=== PATIENT | female | born 1965 | race Two or more races ===

== ENCOUNTER → 2018-04-25 | Day surgery (SDC) | payer OTHER ==
[2018-04-25] VITALS (12 sets, daily range): BP systolic 96–145; BP diastolic 48–81
[~2018-04-25] VITALS: Ht 153.7 cm; Wt 82.6 kg
[~2018-04-25] MED LIST: Bupivacaine 0.5% Inj 30 ml vial INJ ONE; Bupivacaine w/Epi 0.25% 30ml Vial INJ ONE; D5 1/2NS 1,000 ML IV SCH; DiphenhydrAMINE 50mg/ml Inj IVP PRN; Duramorph PF 10mg/10ml amp EPIDUR ONE; HYDROmorphone 1mg/ml Carpuject SUBQ PRN; Kenalog-40 1ml Vial ONE; Ketorolac 30mg Inj IV PRN; Ketorolac 30mg Inj ONE; LISINOPRIL40 MG ORAL; LR 1000ml 1,000 ML IVLG SCH; LR 1000ml ONE; Lidocaine 1% 10mg/ml/Epi 0.005mg/ml 30ml vial INJ ONE; Lidocaine 1% MPF 10mg/ml 5ml ONE; Meperidine 50mg/ml Inj(FOR RIGORS ONLY) IV PRN; Metoclopramide 10mg/2ml Inj IVP SCH; Metoclopramide 10mg/2ml Inj ONE; Midazolam 2mg/2ml Inj ONE; Morphine Sulfate PF 10 ML ONE; NS Irrig 1000ml ONE; NS Irrig 4000ml IRRIG ONE; Norco 5mg/325mg tab ORAL PRN; Propofol 200mg/20ml IV ONE; Tylenol #3 tab (300mg/30mg) ORAL PRN; ceFAZolin 1gm IVPB IVPB ONE; celeBREX 200mg Cap **SURGERY PATIENTS ONLY ORAL ONE; fentaNYL 100 mcg/2 mL IV ONE; oxyCONTIN 20mg tab ORAL ONE
--- NOTE | 2018-04-25 08:00 | Pre-Procedure Note/Attestation ---
Pre-Procedure Note/Attestation Complete Prior to Procedure Planned Procedure: right Procedure Narrative: knee arthroscopy, possible synovectomy, possible menisectomy Indications for Procedure Pre-Operative Diagnosis: right knee internal derangement Attestation I attest that I discussed the nature of the procedure; its benefits; risks and complications; and alternatives (and the risks and benefits of such alternatives ), prior to the procedure, with the patient (or the patient's legal patient care representative). I attest that, if there was a reasonable possibility of needing a blood transfusion, the patient (or the patient's legal patient care representative) was given the [facility] standardized written summary, pursuant to the Mitch Stoney Blood Safety Act ([place] Health and Safety Code # 1645, as amended). I attest that I re-evaluated the patient just prior to the surgery and that there has been no change in the patient's H&P, except as documented below: Kris Almanza MD Apr 25, 2018 08:00
--- NOTE | 2018-04-25 08:00 | Operative Note - PDOC ---
Operative Note Operative Note Pre-op Diagnosis: right knee internal derangement Procedure: see op report Post-op Diagnosis: same as pre-op plus Operative Findings: consistent w/pre-op dx studies Anesthesia: MAC Specimen: none Complications: none Condition: stable Estimated Blood Loss: none Implant(s) used?: No Kris Almanza MD Apr 25, 2018 08:00
--- NOTE | 2018-04-25 12:27 | Anethesia Preoperative Eval ---
Anesthesia Pre-op PMH/ROS General Date of Evaluation: Apr 25, 2018 Time of Evaluation: 11:57 Anesthesiologist: Chelsie ASA Score: ASA 2 Mallampati Score Class I : Soft palate, uvula, fauces, pillars visible Class II: Soft palate, uvula, fauces visible Class III: Soft palate, base of uvula visible Class IV: Only hard plate visible Mallampati Classification: Class II Surgeon: Archie Diagnosis: R knee pain Surgical Procedure: R knee scope Anesthesia History: none Family History: no anesthesia problems Allergies: Coded Allergies: No Known Allergies (Unverified , 04/24/18) Medications: see eMAR Patient NPO?: Yes Past Medical History Cardiovascular: Reports: HTN - stable Pulmonary: Denies: asthma, COPD, TUCKER, other Gastrointestinal/Genitourinary: Reports: GERD; Denies: CRI, ESRD, other Neurologic/Psychiatric: Denies: dementia, CVA, depression/anxiety, TIA, other Endocrine: Denies: DM, hypothyroidism, steroids, other HEENT: Denies: cataract (L), cataract (R), glaucoma, MENTASTA (L), MENTASTA (R), other Hematology/Immune: Denies: anemia, DVT, bleeding disorder, other Musculoskeletal/Integumentary: Denies: OA, RA, DJD, DDD, edema, other Other: obesity PMH Narrative: as above PSxH Narrative: None Anesthesia Pre-op Phys. Exam Physician Exam Last Vital Signs Date Time Temp Pulse Resp B/P (MAP) Pulse Ox O2 Delivery O2 Flow Rate FiO2 04/25/18 10:03 97.7 75 20 137/78 100 Room Air Constitutional: NAD Neurologic: CN 2-12 intact Cardiovascular: RRR, no M/R/G Respiratory: CTA Gastrointestinal: other - obesity Airway Exam Mallampati Score: Class II MO: full Neck: short ROM: limited Teeth: missing Dentures: upper, lower Anesthesia Pre-op A/P Labs see chart Urine Test Test 04/25/18 09:10 Urine HCG, Qualitative Negative (NEGATIVE) Studies Pre-op Studies: EKG - NSR Risk Assessment & Plan Assessment: ASA 2 Plan: GA with LMA Status Change Before Surgery: No Pre-Antibiotics Drug: Ancef 1 gr. Given Within 1 Hr of Incision: Yes Time Given: 12:22 Jed Holguin MD Apr 25, 2018 12:27
--- NOTE | 2018-04-25 13:43 | Immediate Post-Op Evaluation ---
Immediate Post-Op Evalulation Immediate Post-Op Evalulation Procedure: R knee arthroscopy meniscectomy Date of Evaluation: Apr 25, 2018 Time of Evaluation: 13:42 IV Fluids: 800 Blood Products: none Estimated Blood Loss: none Urinary Output: none Blood Pressure Systolic: 98 Blood Pressure Diastolic: 64 Pulse Rate: 57 Respiratory Rate: 20 O2 Sat by Pulse Oximetry: 99 Temperature (Fahrenheit): 98.3 Pain Score (1-10): 1 Nausea: No Vomiting: No Complications none Patient Status: reacts, patent, none Hydration Status: adequate Jed Holguin MD Apr 25, 2018 13:43
--- NOTE | 2018-04-25 16:21 | 48 Hour Post Anesthesia Eval ---
Post Anesthesia Evaluation Procedure: R knee arthroscopy meniscectomy Date of Evaluation: Apr 25, 2018 Time of Evaluation: 16:20 Blood Pressure Systolic: 132 0: 58 Pulse Rate: 72 Respiratory Rate: 20 Temperature (Fahrenheit): 97.6 O2 Sat by Pulse Oximetry: 98 Airway: patent Nausea: No Vomiting: No Pain Intensity: 1 Hydration Status: adequate Cardiopulmonary Status: stable Mental Status/LOC: patient returned to baseline Follow-up Care/Observations: n/a Post-Anesthesia Complications: none Follow-up care needed: ready to discharge Jed Holguin MD Apr 25, 2018 16:21
--- NOTE | 2018-04-25 20:45 | Operative Note - Dictated ---
POSTOPERATIVE DIAGNOSES: 1. Right knee medial and lateral meniscus tear. 2. Right knee chondral damage. 3. Right knee synovitis/hypertrophic fat pad syndrome. POSTOPERATIVE DIAGNOSES: 1. Right knee medial and lateral meniscus tear. 2. Right knee chondral damage. 3. Right knee synovitis/hypertrophic fat pad syndrome. PROCEDURE: 1. Right knee arthroscopic and partial medial and lateral meniscectomy. 2. Synovectomy, lateral patellofemoral compartment. 3. Gentle chondroplasty, patellofemoral medial compartment. SURGEON: Kris Almanza M.D. ANESTHESIA: General. INDICATION FOR PROCEDURE: The patient is a pleasant 52-year-old female, who has had significant right knee pain. She had MRI, which showed a medial and lateral meniscus tear. She has failed conservative treatment, elected to undergo right knee arthroscopic, partial medial and lateral meniscectomy, synovectomy, possible chondroplasty. She understood that arthroscopic surgery would not address any significant underlying arthritis. Additional risks including continued pain, need for future surgery, risk of medical complications, DVT, and PE, postoperative risks were all discussed. DESCRIPTION OF PROCEDURE: After informed consent was obtained, the patient was brought to the operating room. The patient was placed under general anesthesia. . The patient then had the right leg prepped and draped in a sterile manner. Time-out was performed. Ancef was administered. Inferolateral stab incision was then made. Trocar was introduced into the knee joint. There is hypertrophic fat pad synovial tissue making visualization trocar somewhat difficult. Medial compartment was entered. There was hypertrophic synovial tissue and fat pad. Medial working portal was established. At this point, a complete synovectomy and excision of fat pad was performed to better visualize the medial compartment, intercondylar notch and lateral compartment. There was some grade 2 chondral damage in the distal medial femoral condyle. Medial compartment was entered. There was some grade 2 chondral damage to tibial plateau. There was a small tear in posterior horn medial meniscus. Partial meniscectomy was performed. Once that was done, the intercondylar notch was entered. The ACL was probed and noted to be intact. Lateral compartment was entered. There was a tear of the anterior horn of middle body of the lateral meniscus extending slightly posteriorly. Partial lateral meniscectomy using a shaver was performed. Once that was done, the camera was repositioned in the patellofemoral compartment. Complete synovectomy was completed. Once that was done, we can better visualize the trochlear groove which had grade 2 chondral damage. At this point, the instruments were removed. Portal sites were closed using 3-0 Monocryl sutures. Steri-Strips and a sterile dressing were applied. The patient awoken and taken to recovery room with stable vital signs. ESTIMATED BLOOD LOSS: None. COMPLICATIONS: None. SPECIMENS: None. IMPLANTS: None. Kris Almanza M.D. DR: Steven JOB#: [id number] CC: [email or web address]
== END | disposition home or self-care (01) ==
LOC: SUR 08:49
DX: S83.241A Other tear of medial meniscus, current injury, right knee, initial encounter (principal); S83.281A Other tear of lateral meniscus, current injury, right knee, initial encounter; X58.XXXA Exposure to other specified factors, initial encounter; M65.9 Synovitis and tenosynovitis, unspecified; M79.4 Hypertrophy of (infrapatellar) fat pad; I10 Essential (primary) hypertension; K21.9 Gastro-esophageal reflux disease without esophagitis; E66.9 Obesity, unspecified; Z68.35 Body mass index [BMI] 35.0-35.9, adult
CPT/HCPCS: 29876; 29880; 81025; J0690; J1885; J2250; J2274; J2405; J2704; J2765; J3010; J3301; J3490; 94003; 94150